=== PATIENT | female | born 1965 | race Caucasian/White ===

== ENCOUNTER → 2024-12-07 | Outpatient (CLI) | payer OTHER, SELFPAY ==
[2024-12-07 11:38] LABS: Creatinine MALB Rnd Ur 120 mg/dL (30-125); Microalbumin Creat Ratio 14 mg/gCrea (<30); Microalbumin, Random Urine 17 mg/L (0-300)
[2024-12-07 11:43] LABS: Glucose Estimated Average 220 mg/dL (80-131); Hemoglobin A1C 9.3 % Hgb (4.8-6.0)
[2024-12-07 11:45] LABS: Alanine Aminotransferase 29 U/L (10-49); Albumin, Serum 4.3 gm/dL (3.4-4.8); Alkaline Phosphatase 69 U/L (46-116); Anion Gap 3 (7-16); Aspartate Amino Transferase 22 U/L (0-34); BUN/Creatinine Ratio 12 Ratio (12-20); Bilirubin,Direct 0.2 mg/dL (0.0-0.3); Bilirubin,Total 0.6 mg/dL (0.3-1.2); Blood Urea Nitrogen 12 mg/dL (9-23); Calcium 9.8 mg/dL (8.3-10.6); Cardiac Risk Estimate 3.6 RATIO (3.7-5.6); Chloride 104 mMol/L (98-107); Cholesterol 208 mg/dL (132-200); Free T4 (Free Thyroxine) 1.14 ng/dL (0.89-1.76); Glucose 192 mg/dL (74-106); HDL Cholesterol 58 mg/dL (40-60); LDL Cholesterol,Calculated 126 mg/dL (0-130); Osmolality,Calculated 276 (275-295); Potassium 4.6 mMol/L (3.4-5.1); Sodium 136 mMol/L (136-145); Total Protein 6.3 gm/dL (5.7-8.2); Triglycerides 122 mg/dL (30-150); eGFR > 60 See Note
== END | disposition home or self-care (01) ==
LOC: COPL 09:58
PROVIDERS: PCP Internal Medicine Cardiovascular Disease; Referring Provider Physician Assistant; Visit Provider Physician Assistant
DX: E11.65 Type 2 diabetes mellitus with hyperglycemia (principal); I10 Essential (primary) hypertension; E78.5 Hyperlipidemia, unspecified; I20.9 Angina pectoris, unspecified; E03.9 Hypothyroidism, unspecified
CPT/HCPCS: 36415; 80048; 80061; 80076; 82043; 82570; 83036; 84439; 84443

== ENCOUNTER 2025-01-01 15:30 | Emergency (ER) | payer OTHER, SELFPAY ==
[2025-01-01 15:31] VITALS: BMI 36.0
--- NOTE | 2025-01-01 15:34 | EKG_ITS ---
[facility] Test Date: 2025-01-01 Pat Name: CARY HALL Department: Room: - Gender: Female Manager Filter: : 1965 Requested By: ED Temporary Provider Order Number: [id number] Reading MD: ED Temporary Provider Measurements Intervals Teller Rate: 71 P: 30 KS: 176 QRS: 0 QRSD: 103 T: 43 QT: 380 QTc: 415 Interpretive Statements SINUS RHYTHM LOW QRS VOLTAGE IN PRECORDIAL LEADS [QRS DEFLECTION < 1.0 mV IN CHEST LEADS] POSSIBLE ANTERIOR MYOCARDIAL INFARCTION , PROBABLY OLD [30 ms Q WAVE IN V3/V4, OR R < 0.2 mV IN V4] Compared to ECG 08/27/2024 18:38:17 Myocardial infarct finding now present Ventricular premature complex(es) no longer present /store/S0/[id number]/ecg/[id number].pdf
[2025-01-01 15:50] VITALS: BP 147/89; PULSE 82; RESP 20; TEMP 36.9; O2SAT 97; BMI 37.0
--- NOTE | 2025-01-01 16:10 | XR_ITS ---
EXAMINATION: XR chest 2V ORDERING PROVIDER: Vitaliy Hernandez (LABORER CHEESEMAKING), LABORER CHEESEMAKING HISTORY: cough TECHNIQUE: PA and Lateral radiographs of the chest. COMPARISON: 08/27/2024, 12/28/2023 chest radiographs FINDINGS: Lungs: Similar basilar predominant bronchial wall thickening. No consolidation. Pleura: No pneumothorax or pleural effusion. Cardiomediastinal Silhouette: Normal in size. Soft Tissues/Bones: Cervical spine fusion changes. IMPRESSION: Similar bronchitis versus bronchopneumonia. Query underlying chronic lung disease.
--- NOTE | 2025-01-01 16:10 | XR_ITS ---
EXAMINATION: CT head/brain wo con ORDERING PROVIDER: Vitaliy SPENCER), AGILE PROJECT MANAGER HISTORY: headache TECHNIQUE: CT scanner was used in the volumetric, helical non-contrast acquisition of the head with 2-D and 3-D reformats created on a separate workstation and submitted for interpretation. Institutional dose reducing protocols were utilized. RADIATION DOSE: DLP 1007 mGy-cm COMPARISON: 04/26/2028, CT head. FINDINGS: BRAIN: No acute intracranial hemorrhage, mass effect, or midline shift. MANUEL-WHITE DIFFERENTIATION: Preserved. EXTRA-AXIAL SPACES: No abnormal collection. SULCI: Normal. VENTRICLES: Normal. BASAL CISTERNS: Normal. VESSELS: No hyperdense vessel sign. DURAL VENOUS SINUSES: Symmetric attenuation. POSTERIOR FOSSA: Normal. MASTOID AIR CELLS: Clear. PARANASAL SINUSES: Moderate sized right maxillary sinus mucous retention cyst9. ORBITS: Normal. BONES: Normal. SCALP: Normal. IMPRESSION: No acute intracranial findings.
--- NOTE | 2025-01-01 16:11 | PD.EDRME ---
Rapid Medical Screening Exam RME Arrival date/time: 01/01/25 15:30 59-year-old female presents emergency department today complains of generalized fatigue, abdominal pain, chest pain, headache Chief Complaint: Chest Pain Vital signs: Vital Signs Temperature 98.5 F 01/01/25 15:50 Pulse Rate 82 01/01/25 15:50 Respiratory Rate 20 01/01/25 15:50 Blood Pressure 147/89 H 01/01/25 15:50 Pulse Oximetry (%) 97 01/01/25 15:50 Oxygen Delivery Method Room Air 01/01/25 15:50
[2025-01-01 16:44] LABS: Basophils # (Auto) 0.1 Thou/mm3 (0.0-0.2); Basophils % (Auto) 1 % (0-2.5); Eosinophils # (Auto) 0.3 Thou/mm3 (0.0-0.5); Eosinophils % (Auto) 4 % (0-10); Hematocrit 37.9 % (36.0-46.0); Hemoglobin 13.3 g/dL (12.0-16.0); Immature Granulocytes % (Auto) 0 % (0-0); Immature Granulocytes Auto 0.02 Thou/mm3 (0.00-0.00); Lymphocytes # (Auto) 3.6 Thou/mm3 (1.0-4.8); Lymphocytes % (Auto) 41 % (10-50); Mean Corpuscular HGB Conc 35.1 g/dl (31.0-37.0); Mean Corpuscular Hemoglobin 30.6 pg (25.0-35.0); Mean Corpuscular Volume 87 fL (80-100); Monocytes # (Auto) 0.4 Thou/mm3 (0.0-0.8); Monocytes % (Auto) 5 % (0-12); Neutrophils # (Auto) 4.5 Thou/mm3 (1.8-7.7); Neutrophils % (Auto) 50 % (37-80); Nucleated Red Blood Cell % 0 /100 WBC (0); Platelet Count 206 Thou/mm3 (140-440); RDW Standard Deviation 40.2 fL (36.4-46.3); Red Blood Count 4.35 Miln/mm3 (4.00-5.20); White Blood Count 8.9 Thou/mm3 (3.6-11.0)
[2025-01-01 17:08] LABS: Collection Type, Urine Clean Catch
[2025-01-01 17:24] LABS: Alanine Aminotransferase 28 U/L (10-49); Albumin, Serum 4.2 gm/dL (3.4-4.8); Albumin/Globulin Ratio 1.8 (1.2-2.2); Alkaline Phosphatase 62 U/L (46-116); Anion Gap 6 (7-16); Aspartate Amino Transferase 22 U/L (0-34); BUN/Creatinine Ratio 9 Ratio (12-20); Bilirubin,Total 0.6 mg/dL (0.3-1.2); Blood Urea Nitrogen 8 mg/dL (9-23); Calcium 9.2 mg/dL (8.3-10.6); Calcium (Corrected) 9.2 mg/dL (8.5-10.1); Carbon Dioxide 27.4 mMol/L (20.0-31.0); Chloride 98 mMol/L (98-107); Creatinine (Component) 0.9 mg/dL (0.6-1.3); Estimated Creatinine Clearance 83.8 mL/min (>60); Globulin 2.3 gm/dL (2.3-3.5); Glucose 106 mg/dL (74-106); Lipase 41 U/L (12-53); Osmolality,Calculated 260 (275-295); Potassium 4.1 mMol/L (3.4-5.1); Sodium 131 mMol/L (136-145); Total Protein 6.5 gm/dL (5.7-8.2); Troponin I < 0.002 ng/mL (0.0-0.045); eGFR > 60 See Note
[2025-01-01 17:36] LABS: Bacteria,Urine Rare; Bilirubin,Urine Negative (Negative); Blood,Urine Negative (Negative); Clarity,Urine Clear (Clear/Hazy); Color,Urine Colorless (Lt Yel-Yel); Culture Indicated,Urine Not Indicated; Glucose, Urine Negative (Negative); Ketones,Urine Negative (Negative); Leukocyte Esterase,Urine Negative (Negative); Nitrite,Urine Negative (Negative); Protein,Urine Negative (Neg - Trace); RBC,Urine 1 /hpf (0-3); Specific Gravity,Urine 1.007 (1.001-1.035); Squamous Epithelial Cell,Urine 2 /hpf (0-5); Urobilinogen,Urine Negative mg/dL (0.0-1.0); WBC,Urine 1 /hpf (0-5)
[2025-01-01 19:35] VITALS: BP 138/83; PULSE 81; RESP 19; TEMP 37; O2SAT 98
[2025-01-01 20:39] LABS: Troponin I < 0.002 ng/mL (0.0-0.045)
--- NOTE | 2025-01-02 00:14 | PC.NURSE ---
NO ANSWER AT ER LOBBY OR OUTSIDE ER TO BE RE EVALUATED.
--- NOTE | 2025-01-02 00:28 | PC.NURSE ---
NO ANSWER AT ER LOBBY OR OUTSIDE ER TO BE RE EVALUATED.
--- NOTE | 2025-01-02 00:40 | PC.NURSE ---
NO ANSWER AT ER LOBBY OR OUTSIDE ER.
== END 2025-01-02 00:45 | disposition left against medical advice (07) ==
PROVIDERS: Nurse Practitioner Primary Care; Physician Assistant; Emergency Provider Emergency Medicine; PCP Physician Assistant
DX: R53.83 Other fatigue (principal); R51.9 Headache, unspecified; R07.9 Chest pain, unspecified; R10.9 Unspecified abdominal pain; Z53.29 Procedure and treatment not carried out because of patient's decision for other reasons
CPT/HCPCS: 36415; 70450; 71046; 80053; 81001; 83690; 84484; 85025; 87400; 93005; 99281

== ENCOUNTER → 2025-01-31 | Outpatient (CLI) | payer OTHER, MEDICAID, SELFPAY ==
[2025-01-31 08:42] LABS: Basophils # (Auto) 0.1 Thou/mm3 (0.0-0.2); Basophils % (Auto) 1 % (0-2.5); Eosinophils # (Auto) 0.3 Thou/mm3 (0.0-0.5); Eosinophils % (Auto) 4 % (0-10); Hematocrit 42.7 % (36.0-46.0); Hemoglobin 14.5 g/dL (12.0-16.0); Immature Granulocytes % (Auto) 1 % (0-0); Immature Granulocytes Auto 0.05 Thou/mm3 (0.00-0.00); Lymphocytes # (Auto) 2.9 Thou/mm3 (1.0-4.8); Lymphocytes % (Auto) 36 % (10-50); Mean Corpuscular Hemoglobin 30.7 pg (25.0-35.0); Mean Corpuscular Volume 90 fL (80-100); Monocytes # (Auto) 0.6 Thou/mm3 (0.0-0.8); Monocytes % (Auto) 7 % (0-12); Neutrophils # (Auto) 4.3 Thou/mm3 (1.8-7.7); Neutrophils % (Auto) 52 % (37-80); Nucleated Red Blood Cell % 0 /100 WBC (0); Platelet Count 229 Thou/mm3 (140-440); RDW Standard Deviation 42.1 fL (36.4-46.3); Red Blood Count 4.73 Miln/mm3 (4.00-5.20); White Blood Count 8.2 Thou/mm3 (3.6-11.0)
[2025-01-31 08:48] LABS: Glucose Estimated Average 203 mg/dL (80-131); Hemoglobin A1C 8.7 % Hgb (4.8-6.0)
[2025-01-31 09:05] LABS: Anion Gap 5 (7-16); BUN/Creatinine Ratio 9 Ratio (12-20); Blood Urea Nitrogen 8 mg/dL (9-23); Calcium 9.1 mg/dL (8.3-10.6); Carbon Dioxide 28.4 mMol/L (20.0-31.0); Chloride 97 mMol/L (98-107); Creatinine (Component) 0.9 mg/dL (0.6-1.3); Glucose 194 mg/dL (74-106); Osmolality,Calculated 264 (275-295); Potassium 4.3 mMol/L (3.4-5.1); Sodium 130 mMol/L (136-145); Thyroid Stimulating Hormone 5.75 uIU/mL (0.55-4.78); eGFR > 60 See Note
== END | disposition home or self-care (01) ==
LOC: COPL 06:40
PROVIDERS: PCP Physician Assistant; Referring Provider Physician Assistant; Visit Provider Physician Assistant
DX: R53.83 Other fatigue (principal); E11.65 Type 2 diabetes mellitus with hyperglycemia; J44.9 Chronic obstructive pulmonary disease, unspecified
CPT/HCPCS: 36415; 80048; 83036; 84443; 85025

== ENCOUNTER → 2025-03-08 | Outpatient (CLI) | payer OTHER, MEDICAID, SELFPAY ==
[2025-03-08 08:57] LABS: Thyroid Stimulating Hormone 4.11 uIU/mL (0.55-4.78)
== END | disposition home or self-care (01) ==
LOC: COPL 06:52
PROVIDERS: PCP Physician Assistant; Referring Provider Physician Assistant; Visit Provider Physician Assistant
DX: E03.9 Hypothyroidism, unspecified (principal)
CPT/HCPCS: 36415; 84436; 84443

== ENCOUNTER 2025-04-28 23:25 | Emergency (ER) | payer OTHER, MEDICAID, SELFPAY ==
[2025-04-28 23:26] VITALS: BMI 36.0
[2025-04-28 23:32] VITALS: BP 146/78; PULSE 100; RESP 20; TEMP 36.4; O2SAT 96
--- NOTE | 2025-04-28 23:40 | PD.EDARRY ---
ED Arrhythmia Palp. RME/HPI General Chief Complaint: Arrhythmia/Palpitations Stated Complaint: HEART BEATING FAST Time Seen by Provider: 04/28/25 23:40 Arrival date/time: 04/28/25 23:25 RME / HPI RME / HPI narrative: This section includes all my notes and documentations, including HPI, PE, and ED course. Kevin Dye MD HPI: 60 y/o female with Hx of Anxiety, Cardiac Arrhythmia, Angina, and HTN presents c/o palpitations. And intense fear,, sweating, chills, shaking, trouble breathing, chest pain, stomach pain, nausea, numbness and tingling in the hands and feet and face, confusion, hot flashes, and feeling faint. No other complaints. ROS: All negative except as documented in HPI. Physical Exam: General: Alert and oriented. Appears severely anxious. Eyes: Conjunctivae and lids clear. ENT: No nasal congestion. Neck: Supple. Heart: RRR. Lungs: No respiratory distress. Good air movement. No rhonchi, wheezing, rales. Abdomen: Soft and nontender. Skin: Warm and dry. Neuro: Alert and oriented X 3. I reviewed all diagnostic test results: My interpretation of the EKG is: Sinus rhythm (95 bpm) with nonspecific ST-T changes. My interpretation of the chest x-ray is: NAD. Official radiology report is pending. Blood tests unremarkable. At this point, diagnoses include: Anxiety Reaction. Treatment here included: Xanax 0.5 mg Significant improvement noted. Recommended more outpatient cardiac workup. Based on my best medical judgment, made decision no further evaluation or treatment indicated at this time. Patient understands and agrees to the discharge instructions customized and printed, see below. Discharge instructions from Dr. Dye: 1. After extensive evaluation, there is no life-threatening condition.? Such as heart attack or pulmonary embolism (blood clots in your lungs) or pneumothorax (collapsed lung). 2. Your symptoms may be due to underlying stress or anxiety or nerves.? This is fairly common. 3. Take Xanax as needed.? Whether this helps or not will be valuable information to your private doctors. 4. See a private doctor on 05/01/25. To make sure there is no serious underlying heart condition, ask to help you get more tests for your heart that cannot be done here in the ER.? Such as Holter Monitor (cardiac monitoring at home from a day to even a month), heart stress test (on treadmill or with medication), echocardiogram (imaging of your heart structures), heart catherization (checking for blockages in your heart arteries), and a referral to see a Retail Loan Officer. Ask to review all test results and official radiology reports, to make sure you receive all necessary follow-ups and monitoring. 5. Seek immediate medical care with worsening or with any concerns.?? Kevin Dye MD Related Data Home Medications ?Medication ?Instructions ?Recorded ?Confirmed albuterol sulfate 90 mcg/actuation 2 puff inhalation Q6H PRN Cough 05/05/22 12/23/23 aerosol inhaler aspirin 81 mg tablet 81 mg PO QDAY 05/05/22 12/23/23 atorvastatin 40 mg tablet 40 mg PO QPM 05/05/22 12/23/23 bupropion HCl 300 mg 24 hr tablet, 300 mg PO QAM 05/05/22 12/23/23 extended release nitroglycerin 0.4 mg sublingual 0.4 mg buccal Q5MIN PRN Chest Pain 05/05/22 12/23/23 tablet propranolol 10 mg tablet 20 mg PO BID 05/05/22 12/23/23 cetirizine 10 mg tablet 10 mg PO DAILY 12/23/23 12/23/23 citalopram 40 mg tablet 40 mg PO DAILY 12/23/23 12/23/23 dapagliflozin propanediol 10 mg 10 mg PO DAILY 12/23/23 12/23/23 tablet (Farxiga) insulin glargine 100 unit/mL (3 70 unit subcut HS 12/23/23 12/23/23 mL) subcutaneous pen (Lantus Solostar U-100 Insulin) levothyroxine 75 mcg tablet 75 mcg PO QAM 12/23/23 12/23/23 olanzapine 20 mg tablet 20 mg PO HS 12/23/23 12/23/23 risperidone 3 mg tablet 3 mg PO BID 12/23/23 12/23/23 semaglutide 1 mg/dose (4 mg/3 mL) 1 mg subcut QWEEK 12/23/23 12/23/23 subcutaneous pen injector (Ozempic) Previous Rx's ?Medication ?Instructions ?Recorded azithromycin 250 mg tablet See Rx Instructions PO .COMPLEX #6 05/30/24 (Zithromax Z-Julio) tabs alprazolam 0.5 mg tablet (Xanax) 0.5 mg PO BID PRN anxiety #10 tabs 04/29/25 Allergies Allergy/AdvReac Type Severity Reaction Status Date / Time No Known Allergies Allergy Verified 01/01/25 15:31 Review of Systems Review of Systems Systems Reviewed: All systems reviewed, normal except as documented Past Medical History Past Medical History CARDIAC: Positive Cardiac Disorders, Cardiac Arrhythmia, Angina, Hypercholesterolemia and Hypertension RESPIRATORY: Positive Chronic Obstructive Pulmonary Disease (COPD) MUSCULOSKELETAL: Positive Musculoskeletal Disorders ENDOCRINE: Positive Endocrine Disorders and Diabetes Mellitus Type 2 PSYCHO/SOCIAL: Positive Schizophrenia and Anxiety Family History FAMILY HISTORY: Positive Family Psychiatric Problems and Family Cardiac Disorders Surgical History SURGICAL: Positive Tonsillectomy, Abdominal Surgery and Hysterectomy Social History SMOKING STATUS: Current every day smoker ED Exam Narrative Physical exam: Refer to HPI Course Course Course Narrative: CXR is ordered for determining the etiology of shortness of breath. Quality Measures none Vital Signs Vital signs: Vital Signs Temperature 97.6 F 04/28/25 23:32 Pulse Rate 100 04/28/25 23:32 Respiratory Rate 20 04/28/25 23:32 Blood Pressure 146/78 H 04/28/25 23:32 Pulse Oximetry (%) 96 04/28/25 23:32 Oxygen Delivery Method Room Air 04/28/25 23:32 Arrhythmia/Palpitations MDM Narrative MDM Narrative:: Scribe Attestation: IAviva, am scribing for and in the presence of Dr. Dye. Provider Notation: Although this document has been carefully reviewed, there may still be some phonetic and other typographical errors.? These errors are purely grammatical due to imperfections in the software program and should not be construed in any way to? compromise the substance of the patient's medical care during this visit. 60 y/o female with Hx of Anxiety, Cardiac Arrhythmia, Angina, and HTN presents c/o palpitations. And intense fear,, sweating, chills, shaking, trouble breathing, chest pain, stomach pain, nausea, numbness and tingling in the hands and feet and face, confusion, hot flashes, and feeling faint. No other complaints. Patient data External records reviewed:: [facility] previous records (Reviewed prior ED records from 08/27/24. Patient was seen for Chest pain.) Clinical information provided by:: patient Social determinants that could affect healthcare access:: none Patient has the following chronic illnesses:: Cardiac Arrhythmia, Angina, Hypercholesterolemia, Hypertension, Chronic Obstructive Pulmonary Disease (COPD), Diabetes Mellitus Type 2, Schizophrenia and Anxiety How is presenting disease/condition affected by chronic disease/condition?: exacerbated by Evaluation data The following diagnostics were reviewed and interpreted by me:: lab results, radiology exam(s) and EKG tracing(s) (My interpretation of the EKG is: Sinus rhythm (95 bpm) with nonspecific ST-T changes. Kevin Dye MD) Lab and/or radiology exams considered but not ordered:: None Interpretation Summary: I reviewed all diagnostic test results: My interpretation of the EKG is: Sinus rhythm (95 bpm) with nonspecific ST-T changes. My interpretation of the chest x-ray is: NAD. Official radiology report is pending. Blood tests unremarkable. Medications / Prescriptions Medications or Prescriptions considered but not ordered:: None Medication administrations:: Xanax 0.5 mg Consultations Consultation(s) initiated? (list below): No Diagnosis Differential diagnosis arrhythmia/palpitations: palpitations, anxiety, sinus tachycardia, artial fibrillation, artial flutter, ventricular premature beats, supraventricular tachycardia, ventricular tachycardia, WPW and other (AK) Most likely diagnosis given after review of the tests above:: Anxiety Reaction Admission Indicated Admission indicated?: not indicated Explain why admission is indicated or not indicated:: With no condition needing emergent intervention, there was no indication for admission. Admission Request Was there a request for admission?: No Disposition Plan Disposition Plan: Discharge Discharge Attestation Discharge Attestation: The patient and all family members were given an opportunity to ask questions and understood the discharge instructions. Discharge instructions specifically effects, indications for sooner follow up or return to the emergency department, and the expected course of current diagnosis. Patient condition: Stable Discharge Plan Plan Patient Disposition: HOME (Self Care) Prescriptions/Referrals Prescriptions/Med Rec: New alprazolam [Xanax] 0.5 mg tablet 0.5 mg PO BID PRN (Reason: anxiety) Qty: 10 0RF No Action atorvastatin 40 mg Tablet 40 mg PO QPM aspirin 81 mg Tablet 81 mg PO QDAY albuterol sulfate 90 mcg/actuation Hfa Aerosol Inhaler 2 puff INHALATION Q6H PRN (Reason: Cough) propranolol 10 mg Tablet 20 mg PO BID bupropion HCl 300 mg Tablet Extended Release 24 Hr 300 mg PO QAM nitroglycerin 0.4 mg Tablet, Sublingual 0.4 mg BUCCAL Q5MIN MDD 3 PRN (Reason: Chest Pain) Rx Instructions: DO NOT EXCEED A TOTAL OF 3 DOSES IN 15 MINUTES citalopram 40 mg tablet 40 mg PO DAILY Patient Comments: TAKE 1 TABLET BY MOUTH EVERY DAY cetirizine 10 mg tablet 10 mg PO DAILY risperidone 3 mg tablet 3 mg PO BID Patient Comments: TAKE 1 TABLET BY MOUTH TWICE DAILY levothyroxine 75 mcg tablet 75 mcg PO QAM Patient Comments: TAKE 1 TABLET BY MOUTH EVERY MORNING BEFORE FOOD olanzapine 20 mg tablet 20 mg PO HS Patient Comments: TAKE 1 TABLET BY MOUTH EVERY DAY AT BEDTIME insulin glargine [Lantus Solostar U-100 Insulin] 100 unit/mL (3 mL) insulin pen 70 unit SUBCUT HS Patient Comments: ADMINISTER 70 UNITS UNDER THE SKIN EVERY DAY FOR DIABETES Farxiga 10 mg tablet 10 mg PO DAILY Patient Comments: TAKE 1 TABLET BY MOUTH DAILY Ozempic 1 mg/dose (4 mg/3 mL) pen injector 1 mg SUBCUT QWEEK Patient Comments: USE TO INJECT 1MG UNDER THE SKIN EVERY WEEK azithromycin [Zithromax Z-Julio] 250 mg tablet See Rx Instructions .ROUTE .COMPLEX Qty: 6 0RF Rx Instructions: For 250 mg dose pack: take 500 mg today (day 1), then 250 mg for 4 days (days 2-5) Referrals: Zarina Raya PA-C [Primary Care Provider] - In 1 week Problem List Clinical Impression: Anxiety reaction Patient/Caregiver Discharge Instructions Discharge Activity: activity as tolerated Education Materials: ED Anxiety Reaction Additional Instructions: Discharge instructions from Dr. Dye: 1. After extensive evaluation, there is no life-threatening condition.? Such as heart attack or pulmonary embolism (blood clots in your lungs) or pneumothorax (collapsed lung). 2. Your symptoms may be due to underlying stress or anxiety or nerves.? This is fairly common. 3. Take Xanax as needed.? Whether this helps or not will be valuable information to your private doctors. 4. See a private doctor on 05/01/25. To make sure there is no serious underlying heart condition, ask to help you get more tests for your heart that cannot be done here in the ER.? Such as Holter Monitor (cardiac monitoring at home from a day to even a month), heart stress test (on treadmill or with medication), echocardiogram (imaging of your heart structures), heart catherization (checking for blockages in your heart arteries), and a referral to see a Retail Loan Officer. Ask to review all test results and official radiology reports, to make sure you receive all necessary follow-ups and monitoring. 5. Seek immediate medical care with worsening or with any concerns.?? Print Language: [place] Stand Alone Forms: [employer] Info., Patient Portal Info Letter
--- NOTE | 2025-04-28 23:41 | XR_ITS ---
Examination: PA chest single view FINDINGS: Upright PA chest single view Date and time: April 29, 2025, 0023 hours Comparison January 01, 2025 INDICATIONS: Shortness of breath weakness today. FINDINGS: Normal heart size. Moderate vascular congestion. No lobar pneumonia or venecia pulmonary edema IMPRESSION: Moderate vascular congestion
[2025-04-29 00:13] LABS: Basophils # (Auto) 0.0 Thou/mm3 (0.0-0.2); Basophils % (Auto) 0 % (0-2.5); Eosinophils # (Auto) 0.3 Thou/mm3 (0.0-0.5); Eosinophils % (Auto) 4 % (0-10); Hematocrit 39.1 % (36.0-46.0); Hemoglobin 13.6 g/dL (12.0-16.0); Immature Granulocytes Auto 0.03 Thou/mm3 (0.00-0.00); Lymphocytes # (Auto) 2.6 Thou/mm3 (1.0-4.8); Lymphocytes % (Auto) 32 % (10-50); Mean Corpuscular HGB Conc 34.8 g/dl (31.0-37.0); Mean Corpuscular Hemoglobin 30.8 pg (25.0-35.0); Mean Corpuscular Volume 89 fL (80-100); Monocytes # (Auto) 0.4 Thou/mm3 (0.0-0.8); Monocytes % (Auto) 5 % (0-12); Neutrophils # (Auto) 4.7 Thou/mm3 (1.8-7.7); Neutrophils % (Auto) 59 % (37-80); Nucleated Red Blood Cell # 0.00 Thou/mm3 (0.00-0.00); Nucleated Red Blood Cell % 0 /100 WBC (0); Platelet Count 209 Thou/mm3 (140-440); RDW Standard Deviation 39.8 fL (36.4-46.3); Red Blood Count 4.42 Miln/mm3 (4.00-5.20); White Blood Count 8.0 Thou/mm3 (3.6-11.0)
[2025-04-29 00:35] LABS: Alanine Aminotransferase 25 U/L (10-49); Albumin, Serum 4.0 gm/dL (3.4-4.8); Albumin/Globulin Ratio 1.8 (1.2-2.2); Alkaline Phosphatase 67 U/L (46-116); Anion Gap 10 (7-16); Aspartate Amino Transferase 19 U/L (0-34); BUN/Creatinine Ratio 5 Ratio (12-20); Bilirubin,Direct 0.2 mg/dL (0.0-0.3); Bilirubin,Total 0.7 mg/dL (0.3-1.2); Blood Urea Nitrogen < 5 mg/dL (9-23); Calcium 8.8 mg/dL (8.3-10.6); Calcium (Corrected) 8.8 mg/dL (8.5-10.1); Carbon Dioxide 24.9 mMol/L (20.0-31.0); Chloride 100 mMol/L (98-107); Creatinine (Component) 1.0 mg/dL (0.6-1.3); Estimated Creatinine Clearance 73.4 mL/min (>60); Free T4 (Free Thyroxine) 1.16 ng/dL (0.89-1.76); Globulin 2.2 gm/dL (2.3-3.5); Glucose 261 mg/dL (74-106); Magnesium 1.6 mg/dL (1.6-2.6); Osmolality,Calculated 276 (275-295); Potassium 3.3 mMol/L (3.4-5.1); Sodium 135 mMol/L (136-145); Thyroid Stimulating Hormone 5.86 uIU/mL (0.55-4.78); Total Protein 6.2 gm/dL (5.7-8.2); Troponin I < 0.002 ng/mL (0.0-0.045); eGFR > 60 See Note
[2025-04-29 00:41] LABS: D-Dimer < 250 ng/mL (<600)
[2025-04-29 01:03] LABS: B-Type Natriuretic Peptide 51 pg/mL (0-100)
[2025-04-29] MEDS: POTASSIUM CHLORIDE 10% 20 MEQ/15 ML UDC 40 MEQ PO (01:07)
== END 2025-04-29 01:16 | disposition home or self-care (01) ==
PROVIDERS: Emergency Provider Emergency Medicine; PCP Physician Assistant
DX: F41.1 Generalized anxiety disorder (principal); R06.02 Shortness of breath; R53.1 Weakness; R94.31 Abnormal electrocardiogram [ECG] [EKG]; I10 Essential (primary) hypertension; E78.00 Pure hypercholesterolemia, unspecified; F17.210 Nicotine dependence, cigarettes, uncomplicated
CPT/HCPCS: 36415; 71045; 80053; 82248; 83735; 83880; 84439; 84443; 84484; 85025; 85379; 93005; 99283; A9270

== ENCOUNTER 2025-06-02 22:26 | Emergency (ER) | payer OTHER, MEDICAID, SELFPAY ==
[2025-06-02 22:29] VITALS: BMI 36.0
[2025-06-02 23:24] VITALS: BP 160/94; PULSE 104; RESP 18; TEMP 36.9; O2SAT 95
[2025-06-02] MEDS: DIAZEPAM 5 MG TABLET 10 MG PO (23:40)
[2025-06-02 23:47] VITALS: RESP 12
--- NOTE | 2025-06-03 00:54 | PD.EDANX ---
ED Anxiety RME/HPI General Chief Complaint: General Adult/Misc Complain Stated Complaint: CAN'T STOP CRYING,STRESS Time Seen by Provider: 06/02/25 23:29 Arrival date/time: 06/02/25 22:26 60F with history DM, hypothyroidism, and anxiety presents to ED with several weeks of crying and increased stress. Patient denies SI/HI, but would like to talk to the crisis team. Limitations: no limitations Related Data Home Medications ?Medication ?Instructions ?Recorded ?Confirmed albuterol sulfate 90 mcg/actuation 2 puff inhalation Q6H PRN Cough 05/05/22 12/23/23 aerosol inhaler aspirin 81 mg tablet 81 mg PO QDAY 05/05/22 12/23/23 atorvastatin 40 mg tablet 40 mg PO QPM 05/05/22 12/23/23 bupropion HCl 300 mg 24 hr tablet, 300 mg PO QAM 05/05/22 12/23/23 extended release nitroglycerin 0.4 mg sublingual 0.4 mg buccal Q5MIN PRN Chest Pain 05/05/22 12/23/23 tablet propranolol 10 mg tablet 20 mg PO BID 05/05/22 12/23/23 cetirizine 10 mg tablet 10 mg PO DAILY 12/23/23 12/23/23 citalopram 40 mg tablet 40 mg PO DAILY 12/23/23 12/23/23 dapagliflozin propanediol 10 mg 10 mg PO DAILY 12/23/23 12/23/23 tablet (Farxiga) insulin glargine 100 unit/mL (3 70 unit subcut HS 12/23/23 12/23/23 mL) subcutaneous pen (Lantus Solostar U-100 Insulin) levothyroxine 75 mcg tablet 75 mcg PO QAM 12/23/23 12/23/23 olanzapine 20 mg tablet 20 mg PO HS 12/23/23 12/23/23 risperidone 3 mg tablet 3 mg PO BID 12/23/23 12/23/23 semaglutide 1 mg/dose (4 mg/3 mL) 1 mg subcut QWEEK 12/23/23 12/23/23 subcutaneous pen injector (Ozempic) Previous Rx's ?Medication ?Instructions ?Recorded azithromycin 250 mg tablet See Rx Instructions PO .COMPLEX #6 05/30/24 (Zithromax Z-Julio) tabs alprazolam 0.5 mg tablet (Xanax) 0.5 mg PO BID PRN anxiety #10 tabs 04/29/25 Allergies Allergy/AdvReac Type Severity Reaction Status Date / Time No Known Allergies Allergy Verified 06/02/25 22:28 Review of Systems Review of Systems Systems Reviewed: All systems reviewed, normal except as documented Constitutional Constitutional: Reports system reviewed and no additional complaints, except as documented, Denies fever(s) and Denies headache(s) ENT Ears, Nose, Mouth, and Throat: Denies disequilibrium and Denies headache(s) Cardiovascular Cardiovascular: Reports system reviewed and no additional complaints, except as documented, Denies chest pain and Denies dyspnea Respiratory Respiratory: Reports system reviewed and no additional complaints, except as documented, Denies cough and Denies dyspnea Gastrointestinal Gastrointestinal: Reports system reviewed and no additional complaints, except as documented, Denies abdominal pain, Denies nausea and Denies vomiting Neurologic Neurologic: Reports system reviewed and no additional complaints, except as documented, Denies confusion, Denies disequilibrium and Denies headache(s) Psychiatric Psychiatric: Reports as per HPI, Reports anxiety and Denies confusion Past Medical History Past Medical History NEUROLOGIC: Negative Seizures CARDIAC: Positive Cardiac Disorders, Cardiac Arrhythmia, Angina, Hypercholesterolemia and Hypertension; Negative Congestive Heart Failure RESPIRATORY: Positive Chronic Obstructive Pulmonary Disease (COPD) GENITOURINARY: Negative Renal Disease MUSCULOSKELETAL: Positive Musculoskeletal Disorders ENDOCRINE: Positive Endocrine Disorders and Diabetes Mellitus Type 2; Negative Diabetes Mellitus Type 1 PSYCHO/SOCIAL: Positive Schizophrenia and Anxiety OTHER HISTORY: Negative Blood Transfusions or Anesthesia Reactions Family History FAMILY HISTORY: Positive Family Psychiatric Problems and Family Cardiac Disorders Surgical History SURGICAL: Positive Tonsillectomy, Abdominal Surgery and Hysterectomy Social History SMOKING STATUS: Current every day smoker ED Exam General Limitations: Present no limitations General appearance: Present alert and in no apparent distress Head Head exam: Present atraumatic Eye Eye exam: Present normal appearance, PERRL and EOMI ENT ENT exam: Present normal exam, normal oropharynx and mucous membranes moist Neck Neck exam: Present normal inspection, full ROM and trachea midline Chest Chest inspection: Present normal inspection and symmetric chest wall rise Respiratory Respiratory exam: Present normal lung sounds bilaterally Cardiovascular Cardiovascular exam: Present regular rate, normal rhythm and normal heart sounds Abdominal Exam Abdominal exam: Present soft and normal bowel sounds Extremities Exam Extremities exam: Present normal inspection and full ROM Back Exam Back exam: Present normal inspection and full ROM Neurological Exam Neurological exam: Present alert, oriented X3 and CN II-XII intact Psychiatric Psychiatric exam: Present normal affect and normal mood Skin Skin exam: Present warm, dry, intact and normal color Course Quality Measures none Orders Category Date Time Status Diazepam [Valium] Med 06/02/25 23:30 Discontinued 10 mg PO X1 ONE Vital Signs Vital signs: Vital Signs Temperature 98.4 F 06/02/25 23:24 Pulse Rate 104 H 06/02/25 23:24 Respiratory Rate 18 06/02/25 23:24 Blood Pressure 160/94 H 06/02/25 23:24 Pulse Oximetry (%) 95 06/02/25 23:24 Oxygen Delivery Method Room Air 06/02/25 23:24 Anxiety MDM Narrative MDM Narrative: 60F with history DM, hypothyroidism, and anxiety presents to ED with several weeks of crying and increased stress. Patient denies SI/HI, but would like to talk to the crisis team. Physical exam reveals crying female. Patient is afebrile, alert, but anxious. Meds and sales counselor given. Patient prefers to get some sleep and meds and then return in AM to talk to crisis team. Patient data External records reviewed:: [facility] previous records Clinical information provided by:: patient Social determinants that could affect healthcare access:: mental health Patient has the following chronic illnesses:: DM, hypothyroidism, and anxiety How is presenting disease/condition affected by chronic disease/condition?: exacerbated by Evaluation data The following diagnostics were reviewed and interpreted by me:: other (specify) (none) Lab and/or radiology exams considered but not ordered:: not ordered Interpretation Summary: n/a Medications / Prescriptions Medications or Prescriptions considered but not ordered:: ordered Medication administrations:: Medication Administration History Discontinued Medications Diazepam (Diazepam 5 Mg Tablet) 10 mg PO X1 ONE Stop: 06/02/25 23:31 Last Admin: 06/02/25 23:40 Dose: 10 mg Documented By: CB Consultations Consultation(s) initiated? (list below): No Diagnosis Differential diagnosis anxiety: hyperventilation, panic disorder, acute anxiety and other (stress reaction) Most likely diagnosis given after review of the tests above:: stress reaction Admission Indicated Admission indicated?: not indicated Admission Request Was there a request for admission?: No Disposition Plan Disposition Plan: Discharge Discharge Attestation Discharge Attestation: The patient and all family members were given an opportunity to ask questions and understood the discharge instructions. Discharge instructions specifically effects, indications for sooner follow up or return to the emergency department, and the expected course of current diagnosis. Patient condition: Stable Discharge Plan Plan Patient Disposition: HOME (Self Care) Discharge Disposition comment: Stable Prescriptions/Referrals Prescriptions/Med Rec: No Action atorvastatin 40 mg Tablet 40 mg PO QPM aspirin 81 mg Tablet 81 mg PO QDAY albuterol sulfate 90 mcg/actuation Hfa Aerosol Inhaler 2 puff INHALATION Q6H PRN (Reason: Cough) propranolol 10 mg Tablet 20 mg PO BID bupropion HCl 300 mg Tablet Extended Release 24 Hr 300 mg PO QAM nitroglycerin 0.4 mg Tablet, Sublingual 0.4 mg BUCCAL Q5MIN MDD 3 PRN (Reason: Chest Pain) Rx Instructions: DO NOT EXCEED A TOTAL OF 3 DOSES IN 15 MINUTES citalopram 40 mg tablet 40 mg PO DAILY Patient Comments: TAKE 1 TABLET BY MOUTH EVERY DAY cetirizine 10 mg tablet 10 mg PO DAILY risperidone 3 mg tablet 3 mg PO BID Patient Comments: TAKE 1 TABLET BY MOUTH TWICE DAILY levothyroxine 75 mcg tablet 75 mcg PO QAM Patient Comments: TAKE 1 TABLET BY MOUTH EVERY MORNING BEFORE FOOD olanzapine 20 mg tablet 20 mg PO HS Patient Comments: TAKE 1 TABLET BY MOUTH EVERY DAY AT BEDTIME insulin glargine [Lantus Solostar U-100 Insulin] 100 unit/mL (3 mL) insulin pen 70 unit SUBCUT HS Patient Comments: ADMINISTER 70 UNITS UNDER THE SKIN EVERY DAY FOR DIABETES Farxiga 10 mg tablet 10 mg PO DAILY Patient Comments: TAKE 1 TABLET BY MOUTH DAILY Ozempic 1 mg/dose (4 mg/3 mL) pen injector 1 mg SUBCUT QWEEK Patient Comments: USE TO INJECT 1MG UNDER THE SKIN EVERY WEEK azithromycin [Zithromax Z-Julio] 250 mg tablet See Rx Instructions .ROUTE .COMPLEX Qty: 6 0RF Rx Instructions: For 250 mg dose pack: take 500 mg today (day 1), then 250 mg for 4 days (days 2-5) alprazolam [Xanax] 0.5 mg tablet 0.5 mg PO BID PRN (Reason: anxiety) Qty: 10 0RF Problem List Clinical Impression: Stress reaction Patient/Caregiver Discharge Instructions Education Materials: ED Anxiety Reaction Additional Instructions: Please follow-up with PCP within 24-48 hours and return immediately if symptoms worsen. Can come back in ED in AM to talk to crisis team. Print Language: Mongolian Stand Alone Forms: Patient Portal Info Letter PA/AVIATION ORDNANCE OFFICER Supervising Physician HIMANSHU/DANIEL Supervising Physician: Dr. Cochran
== END 2025-06-02 23:49 | disposition home or self-care (01) ==
LOC: SERX 23:43
PROVIDERS: Emergency Provider Emergency Medicine; PCP Physician Assistant
DX: F43.9 Reaction to severe stress, unspecified (principal)
CPT/HCPCS: 99283; A9270

== ENCOUNTER 2025-06-27 16:41 | Emergency (ER) | payer OTHER, MEDICAID, SELFPAY ==
[2025-06-27 16:50] VITALS: BP 126/75; PULSE 69; RESP 19; TEMP 36.1; O2SAT 95; BMI 36.9
--- NOTE | 2025-06-27 16:53 | PD.EDADULT ---
ED General RME/HPI General Chief complaint: General Adult/Misc Complain Stated complaint: LOW BLOOD SUGAR Time Seen by Provider: 06/27/25 16:52 Arrival date/time: 06/27/25 16:41 RME / HPI RME / HPI narrative: 60 year old female with history of hypertension, diabetes, schizophrenia, anxiety presents to the ED BIBA from home for evaluation of hypoglycemia today. Patient reports 2 hours ago she was not feeling right and checked her sugar which was in the high 300s. States she took her Ozempic and usual dose of Lantus (70 units). States about 1-2 hours after taking her medications her symptoms were not improving and rechecked sugar and was 54. States she attempted to eat sugar with no improvement, prompting ED visit. In the ED, patient states I still don't feel good . Additionally reports she has had diarrhea for 3 days. No other illness reported. Denies fever, chills, sweating. Denies chest pain, cough, shortness of breath. Denies nausea, vomiting, abdominal pain. Denies dysuria, urinary frequency and urgency. Related Data Home Medications ?Medication ?Instructions ?Recorded ?Confirmed albuterol sulfate 90 mcg/actuation 2 puff inhalation Q6H PRN Cough 05/05/22 12/23/23 aerosol inhaler aspirin 81 mg tablet 81 mg PO QDAY 05/05/22 12/23/23 atorvastatin 40 mg tablet 40 mg PO QPM 05/05/22 12/23/23 bupropion HCl 300 mg 24 hr tablet, 300 mg PO QAM 05/05/22 12/23/23 extended release nitroglycerin 0.4 mg sublingual 0.4 mg buccal Q5MIN PRN Chest Pain 05/05/22 12/23/23 tablet propranolol 10 mg tablet 20 mg PO BID 05/05/22 12/23/23 cetirizine 10 mg tablet 10 mg PO DAILY 12/23/23 12/23/23 citalopram 40 mg tablet 40 mg PO DAILY 12/23/23 12/23/23 dapagliflozin propanediol 10 mg 10 mg PO DAILY 12/23/23 12/23/23 tablet (Farxiga) insulin glargine 100 unit/mL (3 70 unit subcut HS 12/23/23 12/23/23 mL) subcutaneous pen (Lantus Solostar U-100 Insulin) levothyroxine 75 mcg tablet 75 mcg PO QAM 12/23/23 12/23/23 olanzapine 20 mg tablet 20 mg PO HS 12/23/23 12/23/23 risperidone 3 mg tablet 3 mg PO BID 12/23/23 12/23/23 semaglutide 1 mg/dose (4 mg/3 mL) 1 mg subcut QWEEK 12/23/23 12/23/23 subcutaneous pen injector (Ozempic) Previous Rx's ?Medication ?Instructions ?Recorded azithromycin 250 mg tablet See Rx Instructions PO .COMPLEX #6 05/30/24 (Zithromax Z-Julio) tabs alprazolam 0.5 mg tablet (Xanax) 0.5 mg PO BID PRN anxiety #10 tabs 04/29/25 cefdinir 300 mg capsule 300 mg PO BID #14 caps 06/27/25 cefdinir 300 mg capsule 300 mg PO BID #14 caps 06/27/25 Allergies Allergy/AdvReac Type Severity Reaction Status Date / Time No Known Allergies Allergy Verified 06/02/25 22:28 Review of Systems Review of Systems Systems Reviewed: All systems reviewed, normal except as documented Past Medical History Past Medical History CARDIAC: Positive Cardiac Disorders, Cardiac Arrhythmia, Angina, Hypercholesterolemia and Hypertension RESPIRATORY: Positive Chronic Obstructive Pulmonary Disease (COPD) MUSCULOSKELETAL: Positive Musculoskeletal Disorders ENDOCRINE: Positive Endocrine Disorders and Diabetes Mellitus Type 2 PSYCHO/SOCIAL: Positive Schizophrenia and Anxiety Family History FAMILY HISTORY: Positive Family Psychiatric Problems and Family Cardiac Disorders Surgical History SURGICAL: Positive Tonsillectomy, Abdominal Surgery and Hysterectomy Social History SMOKING STATUS: Current every day smoker ED Exam Narrative Physical exam: GENERAL APPEARANCE: alert and oriented x 4, well-developed, well-nourished, no acute distress HEENT: Normocephalic, atraumatic; pupils equal, round, reactive to light; EOMI; mucous membranes pink, moist; oropharynx clear NECK: Supple LUNGS: CTABL; no wheezes, no rales, no rhonchi HEART: Regular rate, regular rhythm; normal S1, S2; no murmurs ABDOMEN: non distended; normal BS; soft, no tenderness, no guarding, no rebound; no masses, no organomegaly, no hernia BACK: no CVA tenderness EXTREMITIES: atraumatic; no edema NEUROLOGIC: awake; alert and oriented x4; cranial nerves II-XII grossly intact; no focal sensory or motor deficits PSYCHIATRIC: appropriate mood and affect SKIN: warm, dry, normal color; no rashes Course Quality Measures none Orders Category Date Time Status Bedside Blood Glucose Q1HR Care 06/27/25 17:08 Completed Glucose [Bedside Blood Glucose] NOW Care 06/27/25 18:33 Completed Glucose [Bedside Blood Glucose] NOW Care 06/27/25 20:16 Completed CBC Stat Lab 06/27/25 17:21 Completed CMP [Comprehensive Metabolic Panel] Stat Lab 06/27/25 17:21 Completed Lipase Stat Lab 06/27/25 17:21 Completed UA, C/S IF [Urinalysis, C/S if Indicated] Stat Lab 06/27/25 18:08 Completed Urine Culture Stat Lab 06/27/25 18:08 Completed KCL 10% Liq UDC 15 ML Med 06/27/25 18:36 Discontinued 40 meq PO X1 ONE cefTRIAXone/D5w 1gm IV premix [Rocephin/D5w 1gm IV Med 06/27/25 20:17 Discontinued premix] 1 gm in 50 ml IV X1 Vital Signs Vital signs: Vital Signs Temperature 97.0 F 06/27/25 16:50 Pulse Rate 69 06/27/25 16:50 Respiratory Rate 19 06/27/25 16:50 Blood Pressure 126/75 06/27/25 16:50 Pulse Oximetry (%) 95 06/27/25 16:50 Oxygen Delivery Method Room Air 06/27/25 16:50 Pulse ox is 95% on room air which is adequate. Discharge Plan Prescriptions/Referrals Prescriptions/Med Rec: New cefdinir 300 mg capsule 300 mg PO BID Qty: 14 0RF cefdinir 300 mg capsule 300 mg PO BID Qty: 14 0RF No Action atorvastatin 40 mg Tablet 40 mg PO QPM aspirin 81 mg Tablet 81 mg PO QDAY albuterol sulfate 90 mcg/actuation Hfa Aerosol Inhaler 2 puff INHALATION Q6H PRN (Reason: Cough) propranolol 10 mg Tablet 20 mg PO BID bupropion HCl 300 mg Tablet Extended Release 24 Hr 300 mg PO QAM nitroglycerin 0.4 mg Tablet, Sublingual 0.4 mg BUCCAL Q5MIN MDD 3 PRN (Reason: Chest Pain) Rx Instructions: DO NOT EXCEED A TOTAL OF 3 DOSES IN 15 MINUTES citalopram 40 mg tablet 40 mg PO DAILY Patient Comments: TAKE 1 TABLET BY MOUTH EVERY DAY cetirizine 10 mg tablet 10 mg PO DAILY risperidone 3 mg tablet 3 mg PO BID Patient Comments: TAKE 1 TABLET BY MOUTH TWICE DAILY levothyroxine 75 mcg tablet 75 mcg PO QAM Patient Comments: TAKE 1 TABLET BY MOUTH EVERY MORNING BEFORE FOOD olanzapine 20 mg tablet 20 mg PO HS Patient Comments: TAKE 1 TABLET BY MOUTH EVERY DAY AT BEDTIME insulin glargine [Lantus Solostar U-100 Insulin] 100 unit/mL (3 mL) insulin pen 70 unit SUBCUT HS Patient Comments: ADMINISTER 70 UNITS UNDER THE SKIN EVERY DAY FOR DIABETES Farxiga 10 mg tablet 10 mg PO DAILY Patient Comments: TAKE 1 TABLET BY MOUTH DAILY Ozempic 1 mg/dose (4 mg/3 mL) pen injector 1 mg SUBCUT QWEEK Patient Comments: USE TO INJECT 1MG UNDER THE SKIN EVERY WEEK azithromycin [Zithromax Z-Julio] 250 mg tablet See Rx Instructions .ROUTE .COMPLEX Qty: 6 0RF Rx Instructions: For 250 mg dose pack: take 500 mg today (day 1), then 250 mg for 4 days (days 2-5) alprazolam [Xanax] 0.5 mg tablet 0.5 mg PO BID PRN (Reason: anxiety) Qty: 10 0RF Referrals: No Primary/Family,Physician [Primary Care Provider] - In 1 week Problem List Clinical Impression: Hypoglycemia Patient/Caregiver Discharge Instructions Print Language: Lao [facility] Narrative Sign out note: 1800: Patient signed out to Dr. Dye pending labs, reassessment, and final disposition. [facility] hospital course: Malu Kincaid am scribing for and in the presence of Dr. Winter. Clinical Information Provided by patient and EMS Medical Records [facility]ed [facility] and [facility] Meds/Rx Considered, not Ordered None Labs/Rad/Tests considered, not Ordered None Chronic Illness/Social Conditions which may negatively complicate care or outcome(s)-explain: None or not applicable EKG EKG not done Lab Interpretation Labs: interpreted by me Lab(s) interpretation(s): CBC and CMP within normal limits Imaging Imaging interpretation: none Medication Administration(s) Medication Administration History Discontinued Medications Ceftriaxone Sodium/Dextrose (Rocephin/D5w 1gm Iv Premix) 1 gm in 50 mls @ 100 mls/hr IV X1 ONE Stop: 06/27/25 20:46 Last Infusion: 06/27/25 21:00 Dose: Infused Documented By: Admin: 06/27/25 20:25 Dose: 100 mls/hr Documented By: DT Potassium Chloride (Potassium Chloride 10% 20 Meq/15 Ml Udc) 40 meq PO X1 ONE Stop: 06/27/25 18:37 Last Admin: 06/27/25 18:52 Dose: 40 meq Documented By: ED See above Diagnosis Most likely dx, and/or detailed dx discussion: Hypoglycemia Dispositon Disposition: other (Signed out to Dr. Dye pending labs and final disposition )
[2025-06-27 17:01] VITALS: PULSE 68; RESP 18
[2025-06-27 17:27] LABS: Basophils # (Auto) 0.0 Thou/mm3 (0.0-0.2); Basophils % (Auto) 0 % (0-2.5); Eosinophils # (Auto) 0.2 Thou/mm3 (0.0-0.5); Eosinophils % (Auto) 3 % (0-10); Hematocrit 39.5 % (36.0-46.0); Hemoglobin 13.5 g/dL (12.0-16.0); Immature Granulocytes Auto 0.03 Thou/mm3 (0.00-0.00); Lymphocytes # (Auto) 2.6 Thou/mm3 (1.0-4.8); Lymphocytes % (Auto) 30 % (10-50); Mean Corpuscular HGB Conc 34.2 g/dl (31.0-37.0); Mean Corpuscular Hemoglobin 30.3 pg (25.0-35.0); Mean Corpuscular Volume 89 fL (80-100); Monocytes # (Auto) 0.5 Thou/mm3 (0.0-0.8); Monocytes % (Auto) 5 % (0-12); Neutrophils # (Auto) 5.3 Thou/mm3 (1.8-7.7); Neutrophils % (Auto) 62 % (37-80); Nucleated Red Blood Cell # 0.00 Thou/mm3 (0.00-0.00); Nucleated Red Blood Cell % 0 /100 WBC (0); Platelet Count 183 Thou/mm3 (140-440); RDW Standard Deviation 41.1 fL (36.4-46.3); Red Blood Count 4.45 Miln/mm3 (4.00-5.20); White Blood Count 8.6 Thou/mm3 (3.6-11.0)
[2025-06-27 17:47] LABS: Alanine Aminotransferase 31 U/L (10-49); Albumin, Serum 3.9 gm/dL (3.4-4.8); Albumin/Globulin Ratio 2.2 (1.2-2.2); Alkaline Phosphatase 56 U/L (46-116); Anion Gap 7 (7-16); Aspartate Amino Transferase 25 U/L (0-34); BUN/Creatinine Ratio 5 Ratio (12-20); Bilirubin,Total 0.6 mg/dL (0.3-1.2); Blood Urea Nitrogen < 5 mg/dL (9-23); Calcium 9.4 mg/dL (8.3-10.6); Calcium (Corrected) 9.5 mg/dL (8.5-10.1); Carbon Dioxide 28.3 mMol/L (20.0-31.0); Chloride 106 mMol/L (98-107); Creatinine (Component) 1.0 mg/dL (0.6-1.3); Estimated Creatinine Clearance 74.4 mL/min (>60); Globulin 1.8 gm/dL (2.3-3.5); Glucose 147 mg/dL (74-106); Lipase 28 U/L (12-53); Osmolality,Calculated 281 (275-295); Potassium 3.3 mMol/L (3.4-5.1); Sodium 141 mMol/L (136-145); Total Protein 5.7 gm/dL (5.7-8.2); eGFR > 60 See Note
[2025-06-27 18:17] VITALS: BP 148/84; PULSE 65; RESP 20; O2SAT 96
--- NOTE | 2025-06-27 18:23 | PD.EDADDENDU ---
Emergency Room Addendum <Alanna Garnett - Last Filed: 06/27/25 20:24> Addendum Narrative: I took over the care from Dr. Winter at 6 PM on 06/27/2025, see her notes for complete H&P and ED course. I reviewed all diagnostic test results. Blood tests are unremarkable except for K 3.3. Urine test remarkable for positive leukocyte esterase, 5 RBCs, 6 WBCs, and 2+ bacteria. At this point, diagnoses include: 1. Hypoglycemia 2. UTI Treatment here included: 1. Potassium 2. Rocephin Based on my best medical judgment, made decision no further evaluation or treatment indicated at this time. Patient understands and agrees to the discharge instructions customized and printed, see below. Discharge Instructions from Dr. Dye printed for you: 1. You are treated today for severely low sugar levels from insulin. 2. Skip insulin today. 3. Take cefdinir for urinary tract infection. For flushing your urinary tract, increase oral fluid and maintain clear urine. If dark or yellow, increase oral fluid. 4. See a private doctor on 06/28/2025 for recheck and further care. Ask to review all test results and official radiology reports, to make sure you receive all necessary follow-ups and monitoring, including urine culture results. 5. Seek immediate medical care with worsening or with any concerns. Kevin Dye MD <Kevin Dye MD - Last Filed: 06/28/25 01:02> Addendum Narrative: I took over the care from Dr. Winter at 6 PM on 06/27/2025, see her notes for complete H&P and ED course. I reviewed all diagnostic test results. Blood tests are unremarkable except for K 3.3. Urine test remarkable for positive leukocyte esterase, 5 RBCs, 6 WBCs, and 2+ bacteria. At this point, diagnoses include: 1. Hypoglycemia 2. UTI 3. Hypokalemia Treatment here included: 1. Oral KCl 40 mEq 2. Rocephin 1 g IV Significant improvement noted. Recommended outpatient management. Based on my best medical judgment, made decision no further evaluation or treatment indicated at this time. Patient understands and agrees to the discharge instructions customized and printed, see below. Discharge Instructions from Dr. Dye printed for you: 1. You are treated today for severely low sugar levels from insulin. 2. Skip insulin today. 3. Take cefdinir for urinary tract infection. For flushing your urinary tract, increase oral fluid and maintain clear urine. If dark or yellow, increase oral fluid. 4. See a private doctor on 06/28/2025 for recheck and further care. Ask to review all test results and official radiology reports, to make sure you receive all necessary follow-ups and monitoring, including urine culture results. 5. Seek immediate medical care with worsening or with any concerns. Kevin Dye MD
[2025-06-27 18:26] LABS: Collection Type, Urine Clean Catch
[2025-06-27 18:35] LABS: Bacteria,Urine 2+; Bilirubin,Urine Negative (Negative); Blood,Urine Negative (Negative); Clarity,Urine Clear (Clear/Hazy); Color,Urine Lt-Yellow (Lt Yel-Yel); Glucose, Urine Negative (Negative); Hyaline Casts,Urine < 1 /hpf (0-1); Ketones,Urine Negative (Negative); Leukocyte Esterase,Urine Positive (Negative); Nitrite,Urine Negative (Negative); PH,Urine 5.5 (5.0-7.0); Protein,Urine Negative (Neg - Trace); RBC,Urine 5 /hpf (0-3); Specific Gravity,Urine 1.011 (1.001-1.035); Squamous Epithelial Cell,Urine 6 /hpf (0-5); Urobilinogen,Urine Negative mg/dL (0.0-1.0); WBC,Urine 6 /hpf (0-5)
[2025-06-27 18:37] LABS: Culture Indicated,Urine Yes
--- NOTE | 2025-06-27 18:50 | PC.NURSE ---
Pt. blood sugar 89, 2 orange juice given.
[2025-06-27] MEDS: POTASSIUM CHLORIDE 10% 20 MEQ/15 ML UDC 40 MEQ PO (18:52)
[2025-06-27 19:22] VITALS: BP 148/84; PULSE 74; RESP 14; TEMP 37; O2SAT 99
[2025-06-27 20:00] VITALS: BP 150/85; PULSE 85; RESP 16; TEMP 37; O2SAT 99
[2025-06-27] MEDS: cefTRIAXone/D5w 1gm IV premix 1 GM/50 ML BAG IV (20:25)
[2025-06-27 21:00] VITALS: BP 155/86; PULSE 85; RESP 16; TEMP 37; O2SAT 99
== END 2025-06-27 21:03 | disposition home or self-care (01) ==
PROVIDERS: Emergency Medicine; Emergency Provider Emergency Medicine
DX: E11.649 Type 2 diabetes mellitus with hypoglycemia without coma (principal); N39.0 Urinary tract infection, site not specified; E87.6 Hypokalemia; Z79.85 Long-term (current) use of injectable non-insulin antidiabetic drugs; Z79.4 Long term (current) use of insulin
CPT/HCPCS: 36415; 80053; 81001; 83690; 85025; 87077; 87086; 87186; 96365; 99283; J0696; A9270

== ENCOUNTER → 2025-07-26 | Outpatient (CLI) | payer OTHER, MEDICAID, SELFPAY ==
[2025-07-26 08:10] LABS: Collection Type, Urine Clean Catch
[2025-07-26 08:46] LABS: Bacteria,Urine 1+; Bilirubin,Urine Negative (Negative); Blood,Urine Negative (Negative); Clarity,Urine Clear (Clear/Hazy); Color,Urine Lt-Yellow (Lt Yel-Yel); Glucose, Urine Trace (Negative); Ketones,Urine Negative (Negative); Leukocyte Esterase,Urine Positive (Negative); Nitrite,Urine Negative (Negative); PH,Urine 6.0 (5.0-7.0); Protein,Urine Negative (Neg - Trace); RBC,Urine 2 /hpf (0-3); Specific Gravity,Urine 1.004 (1.001-1.035); Squamous Epithelial Cell,Urine 5 /hpf (0-5); Urobilinogen,Urine Negative mg/dL (0.0-1.0); WBC,Urine 1 /hpf (0-5)
[2025-07-26 08:49] LABS: Glucose Estimated Average 206 mg/dL (80-131); Hemoglobin A1C 8.8 % Hgb (4.8-6.0)
[2025-07-26 08:56] LABS: Anion Gap 6 (7-16); BUN/Creatinine Ratio 6 Ratio (12-20); Blood Urea Nitrogen < 5 mg/dL (9-23); Calcium 10.1 mg/dL (8.3-10.6); Carbon Dioxide 26.8 mMol/L (20.0-31.0); Chloride 105 mMol/L (98-107); Creatinine (Component) 0.9 mg/dL (0.6-1.3); Glucose 208 mg/dL (74-106); Osmolality,Calculated 278 (275-295); Potassium 3.9 mMol/L (3.4-5.1); Sodium 138 mMol/L (136-145); eGFR > 60 See Note
[2025-07-26 09:03] LABS: Creatinine,Random Urine 28 mg/dL (30-125)
== END | disposition home or self-care (01) ==
LOC: COPL 06:53
PROVIDERS: PCP Physician Assistant; Referring Provider Physician Assistant; Visit Provider Physician Assistant
DX: E11.65 Type 2 diabetes mellitus with hyperglycemia (principal); E66.9 Obesity, unspecified
CPT/HCPCS: 36415; 80048; 81001; 82570; 83036

== ENCOUNTER 2025-09-13 12:30 | Emergency (ER) | payer OTHER, MEDICAID, SELFPAY ==
[2025-09-13 12:33] VITALS: BP 141/85; PULSE 80; RESP 18; TEMP 36.4; O2SAT 96
[2025-09-13 12:53] VITALS: PULSE 71; O2SAT 99
[2025-09-13 13:08] VITALS: BP 120/77; PULSE 77; RESP 16; TEMP 36.9; O2SAT 94; BMI 34.4
--- NOTE | 2025-09-13 13:20 | XR_ITS ---
Examination: CT pelvis without intravenous contrast. 2-D sagittal and coronal reconstructions. Date and time of exam: September 13, 2025, 1349 hours INDICATIONS: Patient fell today with injury to the pelvis bilateral hip pain CTDI: vol (mGy) : 12.5 DLP: (mGycm) : 403 Technique: Multiple 3 mm axial sections of the pelvis have been obtained with the 64 slice high resolution scanner. 2-D sagittal and coronal reconstructions. Low dose protocols were performed. One or more of the following dose reduction techniques were used; automated exposure control, adjustment of the mA and/or KV according to patient size, use of iterative reconstruction technique. Findings: Prominent osteopenia Sacral segments intact The iliac bones acetabular regions anterior rami intact No acute hip fractures Urinary bladder intact No pelvic hematoma IMPRESSION: No acute hip or pelvic fracture
--- NOTE | 2025-09-13 13:20 | XR_ITS ---
Examination: CT thoracic spine, without contrast. 2-D sagittal reconstructions. 2-D coronal reconstructions. 3-D reconstructions. Date and time of exam: September 13, 2025, 1349 hours INDICATIONS: Patient fell today with injury to the mid back, mid back pain CTDI: vol (mGy): 32.9 DLP: (mGycm): 1118 Technique: Multiple 1.25 mm axial sections of the thoracic spine have been obtained. 2-D sagittal and coronal reconstructions have been obtained. 3-D reconstructions have been obtained. Low dose protocols were performed. One or more of the following dose reduction techniques were used; automated exposure control, adjustment of the mA and/or KV according to patient size, use of iterative reconstruction technique. Findings: Mild acute appearing compression fracture T3, depression superior endplate, reduction hide 15% Satisfactory alignment of this vertebral body Mild acute compression T7, depression superior endplate, reduction in height 15% Moderate diffuse thoracic disc narrowing IMPRESSION: Mild acute compression fractures T3, T7 with satisfactory alignment
--- NOTE | 2025-09-13 13:20 | XR_ITS ---
Examination: CT lumbar spine, without contrast. 2-D sagittal reconstructions. 2-D coronal reconstructions. 3-D reconstructions. Date and time of exam: September 13, 2025, 1349 hours INDICATIONS: Patient fell today with injury to the lower back, lower back pain CTDI: vol (mGy): 36 DLP: (mGycm): 1117 Technique: Multiple 1.25 mm axial sections of the lumbar spine have been obtained. 2-D sagittal and coronal reconstructions have been obtained. 3-D reconstructions have been obtained. Low dose protocols were performed. One or more of the following dose reduction techniques were used; automated exposure control, adjustment of the mA and/or KV according to patient size, use of iterative reconstruction technique. Findings: Satisfactory alignment lumbar vertebral bodies No lumbar vertebral body compression fracture No significant lumbar disc narrowing No spondylolisthesis Lumbar pedicles, laminae transverse and posterior spinous processes intact Axial images demonstrate no focal lumbar disc protrusion IMPRESSION: No acute lumbar fracture
--- NOTE | 2025-09-13 13:20 | PD.EDRME ---
Rapid Medical Screening Exam RME Arrival date/time: 09/13/25 12:30 60-year-old female presents to the Emergency Department today for complaint of lumbar back pain and pelvic pain after a fall recently Chief Complaint: Back Pain/Injury Vital signs: Vital Signs Temperature 97.5 F 09/13/25 12:33 Pulse Rate 80 09/13/25 12:33 Respiratory Rate 18 09/13/25 12:33 Blood Pressure 141/85 H 09/13/25 12:33 Pulse Oximetry (%) 96 09/13/25 12:33 Vital signs reviewed by provider: Yes Exam: On exam patient well-appearing but does report pain Clinical Impression: Imaging obtained
[2025-09-13] MEDS: HYDROcodone/APAP 5/325 TABLET 1 TAB PO (13:41)
--- NOTE | 2025-09-13 14:36 | PD.EDBACK ---
ED Back Injury Pain RME/HPI General Chief Complaint: Back Pain/Injury Stated Complaint: BACK PAIN Time Seen by Provider: 09/13/25 14:14 Arrival date/time: 09/13/25 12:30 60-year-old female patient came in for evaluation regarding upper back pain. Patient sustained a fall from a stairs, he happened 3 days ago. Landing on her back resulting to pain to the tailbone and upper back. Patient denies any head injury denies any LOC no chest pain no abdominal pain. Patient is ambulatory with help. Denies any upper or lower extremity weakness. Denies any incontinence. RME / HPI RME / HPI Narrative: 09/13/25 12:30 60-year-old female presents to the Emergency Department today for complaint of lumbar back pain and pelvic pain after a fall recently Exam: On exam patient well-appearing but does report pain Impression: Imaging obtained Related Data Home Medications ?Medication ?Instructions ?Recorded ?Confirmed albuterol sulfate 90 mcg/actuation 2 puff inhalation Q6H PRN Cough 05/05/22 12/23/23 aerosol inhaler aspirin 81 mg tablet 81 mg PO QDAY 05/05/22 12/23/23 atorvastatin 40 mg tablet 40 mg PO QPM 05/05/22 12/23/23 bupropion HCl 300 mg 24 hr tablet, 300 mg PO QAM 05/05/22 12/23/23 extended release nitroglycerin 0.4 mg sublingual 0.4 mg buccal Q5MIN PRN Chest Pain 05/05/22 12/23/23 tablet propranolol 10 mg tablet 20 mg PO BID 05/05/22 12/23/23 cetirizine 10 mg tablet 10 mg PO DAILY 12/23/23 12/23/23 citalopram 40 mg tablet 40 mg PO DAILY 12/23/23 12/23/23 dapagliflozin propanediol 10 mg 10 mg PO DAILY 12/23/23 12/23/23 tablet (Farxiga) insulin glargine 100 unit/mL (3 70 unit subcut HS 12/23/23 12/23/23 mL) subcutaneous pen (Lantus Solostar U-100 Insulin) levothyroxine 75 mcg tablet 75 mcg PO QAM 12/23/23 12/23/23 olanzapine 20 mg tablet 20 mg PO HS 12/23/23 12/23/23 risperidone 3 mg tablet 3 mg PO BID 12/23/23 12/23/23 semaglutide 1 mg/dose (4 mg/3 mL) 1 mg subcut QWEEK 12/23/23 12/23/23 subcutaneous pen injector (Ozempic) Previous Rx's ?Medication ?Instructions ?Recorded azithromycin 250 mg tablet See Rx Instructions PO .COMPLEX #6 05/30/24 (Zithromax Z-Julio) tabs alprazolam 0.5 mg tablet (Xanax) 0.5 mg PO BID PRN anxiety #10 tabs 04/29/25 cefdinir 300 mg capsule 300 mg PO BID #14 caps 06/27/25 cefdinir 300 mg capsule 300 mg PO BID #14 caps 06/27/25 tramadol 37.5 mg-acetaminophen 325 1 tab PO QID PRN pain #20 tabs 09/13/25 mg tablet Allergies Allergy/AdvReac Type Severity Reaction Status Date / Time No Known Allergies Allergy Verified 09/13/25 12:52 Review of Systems Review of Systems Narrative Review of Systems: Review of system reviewed and within normal limits except mentioned in HPI ED Exam Narrative Physical exam: VITAL SIGNS: Reviewed. GENERAL APPEARANCE: Alert and interactive, follows commands, no acute distress, HEAD AND FACE: Non-traumatic. ENT: PERRL, pink conjunctivitis, eyelid no trauma, Mucous membrane moist. NECK: Supple, nontender, no nuchal rigidity. CHEST: No tenderness, no crepitus, no paradoxical movement, no retractions. LUNGS: Clear, well ventilated, symmetric, no rales, no wheezing, no ronchi, no stridor, good breath sounds bilaterally. HEART: Regular rate, regular rhythm, no murmur, no gallops. ABDOMEN: Soft, positive bowel sounds, nondistended, no guarding, nontender, no rebound, no masses, RECTAL: Deferred. GENITAL: Deferred. NEUROLOGICAL: Gross motor function intact sensory function intact, Appropriate for age. MUSCULOSKELETAL: Upper back tenderness positive midline tenderness on the mid thoracic area, full range of motion. EXTREMITIES: Nontender, full range of motion. SKIN: Color pink, dry, no rash, no lacerations, no abrasions, no contusions. LYMPHATICS: Deferred. Course Quality Measures none Orders Category Date Time Status Miscellaneous Nursing Order X1 Care 09/13/25 14:[address] lumbar spine wo con Stat Exams 09/13/25 13:[address] pelvis wo con Stat Exams 09/13/25 13:[address] thoracic spine wo con Stat Exams 09/13/25 13:20 Completed HYDROcodone*/APAP 5/325 [[facility] [place] 5/325] Med 09/13/25 13:28 Discontinued 1 tab PO X1 ONE Vital Signs Vital signs: Vital Signs Temperature 97.5 F 09/13/25 12:33 Pulse Rate 80 09/13/25 12:33 Respiratory Rate 18 09/13/25 12:33 Blood Pressure 141/85 H 09/13/25 12:33 Pulse Oximetry (%) 96 09/13/25 12:33 Back Pain / Injury MDM Narrative MDM Narrative:: 60-year-old female patient came in for evaluation regarding upper back pain. Patient sustained a fall from a stairs, he happened 3 days ago. Landing on her back resulting to pain to the tailbone and upper back. Patient denies any head injury denies any LOC no chest pain no abdominal pain. Patient is ambulatory with help. Denies any upper or lower extremity weakness. Denies any incontinence. CT scan of the lumbar spine, unremarkable. CT scan of the pelvis came back unremarkable. CT scan of the thoracic spine showed mild compression fracture of T3 and T7. Results discussed with the patient. Patient was placed on a TLSO. Patient was advised to follow-up closely with PCP. Apparently her orthospine surgeon in 1 to 2 days. Patient agrees with the plan Patient data External records reviewed:: None Clinical information provided by:: patient Social determinants that could affect healthcare access:: none Patient has the following chronic illnesses:: Diabetes mellitus hypertension How is presenting disease/condition affected by chronic disease/condition?: exacerbated by Evaluation data The following diagnostics were reviewed and interpreted by me:: radiology exam(s) Lab and/or radiology exams considered but not ordered:: None Interpretation Summary: See above Medications / Prescriptions Medications or Prescriptions considered but not ordered:: None Medication administrations:: Medication Administration History Discontinued Medications Hydrocodone Bitart/Acetaminophen (Hydrocodone/Apap 5/325 Tablet) 1 tab PO X1 ONE Stop: 09/13/25 13:29 Last Admin: 09/13/25 13:41 Dose: 1 tab Documented By: [facility] [place] Consultations Consultation(s) initiated? (list below): No Diagnosis Differential diagnosis back pain/injury: lumbar radiculopathy, strain of lumbar region and thoracic back pain Most likely diagnosis given after review of the tests above:: Compression fraction T3 and T6-7 status post fall Admission Indicated Admission indicated?: not indicated Admission Request Was there a request for admission?: No Disposition Plan Disposition Plan: Discharge Discharge Attestation Discharge Attestation: The patient was given an opportunity to ask questions and understood the discharge instructions. Discharge instructions specifically effects, indications for sooner follow up or return to the emergency department, and the expected course of current diagnosis. Patient condition: Stable Discharge Plan Plan Patient Disposition: HOME (Self Care) Discharge Disposition comment: Stable Prescriptions/Referrals Prescriptions/Med Rec: New tramadol-acetaminophen 37.5-325 mg tablet 1 tab PO QID PRN (Reason: pain) Qty: 20 0RF No Action atorvastatin 40 mg Tablet 40 mg PO QPM aspirin 81 mg Tablet 81 mg PO QDAY albuterol sulfate 90 mcg/actuation Hfa Aerosol Inhaler 2 puff INHALATION Q6H PRN (Reason: Cough) propranolol 10 mg Tablet 20 mg PO BID bupropion HCl 300 mg Tablet Extended Release 24 Hr 300 mg PO QAM nitroglycerin 0.4 mg Tablet, Sublingual 0.4 mg BUCCAL Q5MIN MDD 3 PRN (Reason: Chest Pain) Rx Instructions: DO NOT EXCEED A TOTAL OF 3 DOSES IN 15 MINUTES citalopram 40 mg tablet 40 mg PO DAILY Patient Comments: TAKE 1 TABLET BY MOUTH EVERY DAY cetirizine 10 mg tablet 10 mg PO DAILY risperidone 3 mg tablet 3 mg PO BID Patient Comments: TAKE 1 TABLET BY MOUTH TWICE DAILY levothyroxine 75 mcg tablet 75 mcg PO QAM Patient Comments: TAKE 1 TABLET BY MOUTH EVERY MORNING BEFORE FOOD olanzapine 20 mg tablet 20 mg PO HS Patient Comments: TAKE 1 TABLET BY MOUTH EVERY DAY AT BEDTIME insulin glargine [Lantus Solostar U-100 Insulin] 100 unit/mL (3 mL) insulin pen 70 unit SUBCUT HS Patient Comments: ADMINISTER 70 UNITS UNDER THE SKIN EVERY DAY FOR DIABETES Farxiga 10 mg tablet 10 mg PO DAILY Patient Comments: TAKE 1 TABLET BY MOUTH DAILY Ozempic 1 mg/dose (4 mg/3 mL) pen injector 1 mg SUBCUT QWEEK Patient Comments: USE TO INJECT 1MG UNDER THE SKIN EVERY WEEK azithromycin [Zithromax Z-Julio] 250 mg tablet See Rx Instructions .ROUTE .COMPLEX Qty: 6 0RF Rx Instructions: For 250 mg dose pack: take 500 mg today (day 1), then 250 mg for 4 days (days 2-5) cefdinir 300 mg capsule 300 mg PO BID Qty: 14 0RF cefdinir 300 mg capsule 300 mg PO BID Qty: 14 0RF alprazolam [Xanax] 0.5 mg tablet 0.5 mg PO BID PRN (Reason: anxiety) Qty: 10 0RF Problem List Clinical Impression: Thoracic back pain, Compression fracture of thoracic vertebra Patient/Caregiver Discharge Instructions Discharge Activity: activity as tolerated Education Materials: Back Safety: Standing Additional Instructions: Thank you for the opportunity for serving you today. You are stable for discharged . You are advised to: Follow-up with your PCP in 1 to 2 days as per referral to spine surgeon Return to ED for worsening of symptoms Increase oral fluids Take medication as prescribed Wear your TLSO as needed Print Language: Yoruba Stand Alone Forms: [employer] Info., Patient Portal Info Letter
--- NOTE | 2025-09-13 16:21 | PC.NURSE ---
Patient given TLSO brace, patient demonstrated proper technique of use. Patient states feels better with brace applied.
== END 2025-09-13 16:23 | disposition home or self-care (01) ==
LOC: SERX 14:43
PROVIDERS: Emergency Provider Family Medicine; PCP Physician Assistant
DX: M48.54XA Collapsed vertebra, not elsewhere classified, thoracic region, initial encounter for fracture (principal)
CPT/HCPCS: 72128; 72131; 72192; 99282; A9270

== ENCOUNTER → 2025-10-11 | Outpatient (CLI) | payer OTHER, MEDICAID, SELFPAY ==
[2025-10-11 15:13] LABS: Basophils # (Auto) 0.0 Thou/mm3 (0.0-0.2); Basophils % (Auto) 1 % (0-2.5); Eosinophils # (Auto) 0.2 Thou/mm3 (0.0-0.5); Eosinophils % (Auto) 3 % (0-10); Hematocrit 39.9 % (36.0-46.0); Hemoglobin 14.0 g/dL (12.0-16.0); Immature Granulocytes Auto 0.02 Thou/mm3 (0.00-0.00); Lymphocytes # (Auto) 2.2 Thou/mm3 (1.0-4.8); Lymphocytes % (Auto) 38 % (10-50); Mean Corpuscular HGB Conc 35.1 g/dl (31.0-37.0); Mean Corpuscular Hemoglobin 30.1 pg (25.0-35.0); Mean Corpuscular Volume 86 fL (80-100); Monocytes # (Auto) 0.3 Thou/mm3 (0.0-0.8); Monocytes % (Auto) 6 % (0-12); Neutrophils # (Auto) 3.1 Thou/mm3 (1.8-7.7); Neutrophils % (Auto) 52 % (37-80); Nucleated Red Blood Cell # 0.00 Thou/mm3 (0.00-0.00); Nucleated Red Blood Cell % 0 /100 WBC (0); Platelet Count 123 Thou/mm3 (140-440); RDW Standard Deviation 40.3 fL (36.4-46.3); Red Blood Count 4.65 Miln/mm3 (4.00-5.20); White Blood Count 5.9 Thou/mm3 (3.6-11.0)
[2025-10-11 15:37] LABS: Creatinine MALB Rnd Ur < 13 mg/dL (30-125); Microalbumin, Random Urine < 3 mg/L (0-300)
[2025-10-11 15:42] LABS: Glucose Estimated Average 272 mg/dL (80-131); Hemoglobin A1C 11.1 % Hgb (4.8-6.0)
[2025-10-11 16:29] LABS: Alanine Aminotransferase 21 U/L (10-49); Albumin, Serum 4.3 gm/dL (3.4-4.8); Albumin/Globulin Ratio 1.9 (1.2-2.2); Alkaline Phosphatase 103 U/L (46-116); Anion Gap 8 (7-16); Aspartate Amino Transferase 19 U/L (0-34); BUN/Creatinine Ratio 10 Ratio (12-20); Bilirubin,Total 0.5 mg/dL (0.3-1.2); Blood Urea Nitrogen 8 mg/dL (9-23); Calcium 9.2 mg/dL (8.3-10.6); Calcium (Corrected) 9.2 mg/dL (8.5-10.1); Carbon Dioxide 25.5 mMol/L (20.0-31.0); Cardiac Risk Estimate 4.3 RATIO (3.7-5.6); Chloride 98 mMol/L (98-107); Cholesterol 225 mg/dL (132-200); Creatinine (Component) 0.8 mg/dL (0.6-1.3); Free T4 (Free Thyroxine) 0.95 ng/dL (0.89-1.76); Globulin 2.3 gm/dL (2.3-3.5); Glucose 241 mg/dL (74-106); HDL Cholesterol 52 mg/dL (40-60); LDL Cholesterol,Calculated 127 mg/dL (0-130); Osmolality,Calculated 268 (275-295); Potassium 4.4 mMol/L (3.4-5.1); Sodium 131 mMol/L (136-145); Thyroid Stimulating Hormone 7.26 uIU/mL (0.55-4.78); Total Protein 6.6 gm/dL (5.7-8.2); Triglycerides 230 mg/dL (30-150); eGFR > 60 See Note
[2025-10-23 07:07] LABS: Direct LDL* 138 mg/dL (<100)
== END | disposition home or self-care (01) ==
LOC: COPL 14:18
PROVIDERS: PCP Physician Assistant; Referring Provider Psychiatry & Neurology Psychiatry; Visit Provider Physician Assistant
DX: E11.65 Type 2 diabetes mellitus with hyperglycemia (principal); E03.9 Hypothyroidism, unspecified; Z79.899 Other long term (current) drug therapy; Z51.81 Encounter for therapeutic drug level monitoring
CPT/HCPCS: 36415; 80053; 80061; 82043; 82570; 83036; 83721; 84439; 84443; 85025